=== PATIENT | female | born 1975 | race Caucasian/White ===

== ENCOUNTER → 2023-05-23 | Outpatient (CLI) | payer OTHER ==
--- NOTE | 2023-05-23 13:12 | XR ---
EXAMINATION TYPE: XR cervical spine limited DATE OF EXAM: 05/23/2023 COMPARISON: NONE HISTORY: Numbness TECHNIQUE: 3 views are submitted. FINDINGS: The odontoid is intact. There are no compression deformities. The prevertebral soft tissue structur es are within normal limits. There is straightening of the cervical spine which is nonspecific and ma y be seen with muscular spasm.. IMPRESSION: 1. Straightening of the lumbar spine can be seen with muscular spasm. If the patient is experiencing persistent paresthesias recommend follow-up MRI.
--- NOTE | 2023-05-23 13:19 | XR ---
EXAM TYPE: LUMBAR SPINE X RAY SERIES COMPARISON: NONE HISTORY: Pain TECHNIQUE: 4 views are submitted. FINDINGS: Alignment is anatomic. The pedicles are intact. The transverse processes are intact. There is a gr mario 1 anterolisthesis L4-L5. Facet arthropathy L4-5 and L5-S1. Multilevel mild degenerative disc dise ase. IMPRESSION: 1. Advanced facet arthropathy lower lumbar spine with grade 1 anterolisthesis L4-L5.
== END | disposition home or self-care (01) ==
LOC: RADXRMAIN 12:04
PROVIDERS: ATTEND Family Medicine
DX: M43.16 Spondylolisthesis, lumbar region (principal); M47.816 Spondylosis without myelopathy or radiculopathy, lumbar region
CPT/HCPCS: 72040; 72100

== ENCOUNTER → 2024-02-13 | Outpatient (CLI) | payer OTHER ==
--- NOTE | 2024-02-15 19:38 | MR ---
EXAMINATION TYPE: MR brain wo con DATE OF EXAM: 02/13/2024 10:12 PM COMPARISON: None. CLINICAL INDICATION: Female, 48 years old with history of R51.9, Headache for unusual duration, great er than 2 weeks not responding to medical therapy. TECHNIQUE: Multiplanar, multiecho imaging on a 3.0 Belkis magnet is performed through the brain. Stud y is performed within 24 hours of arrival to the hospital.Multiplanar, multiecho imaging on a 3.0 Karen la magnet is performed through the knee. IV Contrast: mL (None, if empty) FINDINGS: The craniovertebral junction is normal. The pituitary is normal. Diffusion-weighted imaging is performed. No abnormal hyperintensity is present to suggest an acute i ntracranial infarct or acute ischemic change. Signal within the brain is normal. No mass effect is evident. Ventricles and sulci are appropriate for the patient age. Paranasal sinuses and mastoid air cells are clear. IMPRESSION: 1. Unremarkable MRI brain [facility], , 02/15/2024 7:36 PM
== END | disposition home or self-care (01) ==
LOC: RADMRIMAIN 22:45
PROVIDERS: ATTEND Family Medicine
DX: R51.9 Headache, unspecified (principal)
CPT/HCPCS: 70551